=== PATIENT | female | born 1985 | race Caucasian/White ===

== ENCOUNTER 2017-08-09 20:21 | Outpatient (CLI) | payer OTHER ==
[~2017-08-09] VITALS: Ht 160 cm; Wt 94.2 kg
[~2017-08-09 20:21] MED LIST: MACROBID100 MG PO; METHADONE 22 MG/1 ML PO
[2017-08-09 20:32] VITALS: BP 115/63
[2017-08-09] MEDS ORDERED: PRENATAL TABLE1 EAC3 PO (21:36)
[2017-08-09] MEDS ORDERED: PROVENTIL,VENTOL2 MG IH (21:37)
[2017-08-09] MEDS ORDERED: FLOVENT DISKUS1 DISK IH (21:37)
[2017-08-09 22:23] LABS: BASOPHIL (%) 0.3 % (0-1); EOSINOPHIL (%) 0.4 % (0-5); EOSINOPHIL COUNT 0.1 K/uL (0-0.3); HEMATOCRIT 29.2 % (36.0-46.0); HEMOGLOBIN 9.7 G/DL (11.9-15.5); IMMATURE GRANULOCYTE (%) 0.5 % (0.0-0.7); LYMPHOCYTE (%) 14.5 % (15-42); LYMPHOCYTE COUNT 1.7 K/uL (1.0-2.8); MCHC 33.2 G/DL (30.0-36.0); MCV 87.2 FL (83-99); MONOCYTE (%) 6.8 % (3-12); MONOCYTE COUNT 0.8 K/uL (0-0.8); NEUTROPHIL (%) 77.5 % (45-76); NEUTROPHIL COUNT 9.3 K/uL (1.8-6.4); RBC DIS.WIDTH-CV 13.6 % (11.8-14.6); RBC DIS.WIDTH-SD 43.5 % (39-53); RED BLOOD COUNT 3.35 M/uL (3.80-5.20)
[2017-08-09 22:33] LABS: ALBUMIN 3.1 G/DL (3.2-4.8); CHLORIDE 107 MEQ/L (99-109); POTASSIUM 3.6 MEQ/L (3.7-5.4); SODIUM 138 MEQ/L (136-147); TOTAL BILIRUBIN 0.3 MG/DL (0.0-1.0)
[2017-08-09 22:34] LABS: AMPHETAMINE NEGATIVE (500 ng/mL); BARBITURATES NEGATIVE (200 ng/mL); BENZODIAZEPINES NEGATIVE (150 ng/mL); BUPRENORPHINE NEGATIVE (10 ng/mL); COCAINE NEGATIVE (150 ng/mL); METHADONE PRESUMPTIVE POSITIVE (200 ng/mL); METHAMPHETAMINE NEGATIVE (500 ng/mL); OPIATES (MORPHINE) NEGATIVE (100 ng/mL); OXYCODONE NEGATIVE (100 ng/mL); PHENCYCLIDINE NEGATIVE (25 ng/mL); PROPOXYPHENE NEGATIVE (300 ng/mL); THC CANNABINOIDS NEGATIVE (50 ng/mL); TRICYCLIC ANTIDEPRESSANTS NEGATIVE (300 ng/mL)
[2017-08-09 22:39] LABS: ALKALINE PHOSPHATASE 112 IU/L (3-129); ALT (GPT) 21 IU/L (3-49); AST (GOT) 13 IU/L (2-34); CREATININE 0.5 MG/DL (0.6-1.3); GFR ESTIMATE (CALCULATED) > 59 mL/min/; GLUCOSE 89 mg/dL (70-99); TOTAL PROTEIN 5.5 G/DL (6.4-8.3); UREA NITROGEN (BUN) 5 mg/dL (9-23)
[2017-08-09 22:53] LABS: PLATELET COUNT 254 K/uL (156-360)
[2017-08-09 23:06] LABS: GROUP B STREP NEGATIVE (NEGATIVE)
[2017-08-10 11:23] LABS: TREPONEMA ANTIBODY NEGATIVE (NEGATIVE)
[2017-08-10 12:01] LABS: HEPATITIS B SURFACE ANTIGEN Nonreactive; HIV-1/2 AB/AG COMBO Nonreactive
== END 2017-08-09 22:20 | disposition home or self-care (01) ==
LOC: EME 20:21 → EDSTATUS 21:16 → LDRP-OP 21:17 → 2WEST 21:18
PROVIDERS: Advanced Practice Midwife
DX: O47.1 False labor at or after 37 completed weeks of gestation (principal); O09.33 Supervision of pregnancy with insufficient antenatal care, third trimester; O99.512 Diseases of the respiratory system complicating pregnancy, second trimester; J45.909 Unspecified asthma, uncomplicated; Z3A.37 37 weeks gestation of pregnancy; Z79.891 Long term (current) use of opiate analgesic
CPT/HCPCS: 59025; 80053; 85025; 86762; 86780; 87340; 87389; 87653; G0378